=== PATIENT | male | born 2000 | race Caucasian/White ===

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

== ENCOUNTER 2019-01-08 17:11 | Emergency (ER) | payer MEDICAID ==
[~2019-01-08] VITALS: Ht 170.2 cm; Wt 68.0 kg
[2019-01-08] MEDS ORDERED: HYDROmorphone HCL 2 MG/ML VL ONE (17:18)
[2019-01-08] MEDS ORDERED: ONDANSETRON HCL 4 MG/2 ML VIAL ONE (17:18)
[2019-01-08] MEDS ORDERED: LIDOCAINE 1% HCL (LOCAL ANESTH.) INJ 20ML MDV ONE (17:22)
[2019-01-08] MEDS ORDERED: ceFAZolin 1GM VL ONE (17:22)
[2019-01-08] MEDS ORDERED: ONDANSETRON HCL 4 MG/2 ML VIAL IV ONE ×2 (17:30)
[2019-01-08] MEDS ORDERED: TETANUS-DIPTH-ACEL PERTUSSIS 0.5ML SYRG IM ONE (17:30)
[2019-01-08] MEDS ORDERED: LACTATED RINGER'S 1,000 ML IV ONE (17:30)
[2019-01-08] MEDS ORDERED: SODIUM CHLORIDE 0.9% 1,000 ML IV ONE (17:30)
[2019-01-08] MEDS ORDERED: HYDROmorphone HCL 2 MG/ML VL IV ONE ×3 (17:30)
[2019-01-08] MEDS ORDERED: LACTATED RINGER'S 2,000 ML IV ONE ×2 (17:30)
[2019-01-08] MEDS ORDERED: ceFAZolin IM 1GM/2.5ML STERILE WATER IM ONE (17:30)
[2019-01-08 18:38] VITALS: BP 145/89
== END 2019-01-08 19:04 | disposition short-term general hospital (02) ==
LOC: ER 17:11
DX: S61.412A Laceration without foreign body of left hand, initial encounter (principal); X58.XXXA Exposure to other specified factors, initial encounter; Y93.89 Activity, other specified; Y92.89 Other specified places as the place of occurrence of the external cause; Y99.8 Other external cause status
CPT/HCPCS: 12002; 90471; 90715; 96372; 96374; 96375; 99291; J0690; J1170; J2001; J2405

== ENCOUNTER 2019-07-03 21:05 | Emergency (ER) | payer MEDICAID ==
[~2019-07-03] VITALS: Ht 172.7 cm; Wt 72.6 kg
[2019-07-03 22:08] LABS: Urine Bacteria NONE SEEN /hpf (None Seen); Urine Blood Negative /uL (Negative); Urine Mucus FEW (None Seen); Urine WBC 2 /hpf (0 - 3)
[2019-07-03 23:57] VITALS: BP 129/70
[2019-07-04] MEDS ORDERED: PENICILLIN G BENZ 1200000 UNITS/2 ML SYRG IM ONE (00:45)
[2019-07-04] MEDS ORDERED: AZITHROMYCIN 250 MG TAB PO ONE (00:45)
[2019-07-04] MEDS ORDERED: cefTRIAXone SOD 1,000 MG VL IM ONE (00:45)
== END 2019-07-04 01:14 | disposition home or self-care (01) ==
LOC: ER 21:05
DX: Z20.2 Contact with and (suspected) exposure to infections with a predominantly sexual mode of transmission (principal); N48.89 Other specified disorders of penis; R30.0 Dysuria
CPT/HCPCS: 81001; 96372; 99284; J0561; J0696

== ENCOUNTER 2020-03-18 16:10 | Emergency (ER) | payer MEDICAID, OTHER ==
[~2020-03-18] VITALS: Ht 172.7 cm; Wt 79.4 kg
[2020-03-18] MEDS ORDERED: IPRATROPIUM BROM 0.5 MG/2.5ML INH SOL NEB ONE (16:45)
[2020-03-18] MEDS ORDERED: methylPREDNISolone SOD SUCC 125 MG/2 ML VL IM ONE (16:45)
[2020-03-18] MEDS ORDERED: ALBUTEROL SULF 2.5 MG/0.5ML(0.5%) NEB SOLN NEB ONE (16:45)
[2020-03-18 17:38] VITALS: BP 144/82
== END 2020-03-18 17:47 | disposition home or self-care (01) ==
LOC: ER 16:10
DX: J45.21 Mild intermittent asthma with (acute) exacerbation (principal)
CPT/HCPCS: 94640; 96372; 99283; J2930; J7644

== ENCOUNTER 2024-06-05 17:49 | Emergency (ER) | payer MEDICAID, OTHER ==
[~2024-06-05] VITALS: Ht 172.7 cm; Wt 75.7 kg
[2024-06-05 18:26] VITALS: BP 105/62; PULSE 90; RESP 16; TEMP 98.3; O2SAT 96
--- NOTE | 2024-06-05 18:41 | DVH ---
CLINICAL INDICATION: INJURY R/O FX TECHNIQUE: 3 radiographic views of the right hand were obtained. Comparison: None FINDINGS/IMPRESSION: Displaced transverse fracture through the middle to proximal 3rd of the 4th metacarpal of the right h and. The visualized joint space is well maintained. The alignment is anatomical. There is no radiopaque foreign body.
[2024-06-05] MEDS ORDERED: IBUP-1456 PO (19:22)
--- NOTE | 2024-06-05 19:23 | ED.PDOC ---
Musculoskeletal HPI Comments 23 year old male presents to ER with complaints of right hand pain x 1 day. Patient states that he tripped and fell and landed on his right hand onto cement last night and has since been experiencing pain/swelling to right hand. He reports 8/10 pain to right hand without radiation. Denies use of medications for current symptoms and notes he does have intermittent numbness/tingling to right hand. Denies right wrist pain or any further symptoms/complaints Chief Complaint: Upper Extremity Time Seen by MD: 18:08 Primary Care Provider: NONE Reviewed Notes: Nurses Notes, Medications, Allergies Allergies: Coded Allergies: NO KNOWN ALLERGIES (Unverified , 09/18/17) Home Meds Active Scripts Ibuprofen (Ibuprofen) 800 Mg Tab, 1 TAB PO TID PRN, #30 TAB 0 Refills Prov:TIFFANI KOVACS 06/05/24 Information Source: Patient Mode of Arrival: Ambulatory Past Medical History PAST MEDICAL HISTORY: Asthma, Depression Surgical History: Denies all surgeries Family History Family History: Unknown Social History Smoker: Non-Smoker Alcohol: Rarely Drugs: Marijuana Lives In: Home Constitutional: denies: chills, diaphoresis, fatigue, fever, malaise, sweats, weakness, others EENTM: denies: blurred vision, double vision, ear bleeding, ear discharge, ear drainage, ear pain, ear ringing, eye pain, eye redness, hearing loss, mouth pain, mouth swelling, nasal discharge, nose bleeding, nose congestion, nose pain, photophobia, tearing, throat pain, throat swelling, voice changes, others Respiratory: denies: cough, hemoptysis, orthopnea, SOB at rest, shortness of breath, SOB with excertion, stridor, wheezing, others Cardiovascular: denies: chest pain, dizzy spells, diaphoresis, Dyspnea on exertion, edema, irregular heart beat, left arm pain, lightheadedness, palpitations, PND, syncope, others Gastrointestinal: denies: abdomen distended, abdominal pain, blood streaked bowels, constipated, diarrhea, dysphagia, difficulty swallowing, hematemesis, melena, nausea, poor appetite, poor fluid intake, rectal bleeding, rectal pain, vomiting, others Genitourinary: denies: burning, dysuria, flank pain, frequency, hematuria, incontinence, penile discharge, penile sore, pain, testicle pain, testicle swelling, urgency, others Neurological: denies: dizziness, fainting, headache, left sided numbness, left sided weakness, numbness, paresthesia, pre-existing deficit, right sided numbness, right sided weakness, seizure, speech problems, tingling, tremors, weakness, others Musculoskeletal: reports: others (As stated in HPI) Integumetry: reports: others (As stated in HPI) Allergic/Immunocompromised: denies: Difficulty Healing, Frequent Infections, Hives, Itching, others Hematologic/Lymphatic: denies: anemia, blood clots, easy bleeding, easy bru ising, swollen glands, others Endocrine: denies: excessive hunger, excessive sweating, excessive thirst, e xcessive urination, flushing, intolerance to cold, intolerance to heat, unexplained weight gain, unexplained weight loss, others Psychiatric: denies: anxiety, bipolar disorder, depression, hopeless, panic disorder, schizophrenia, sleepless, suicidal, others Physical Exam General Appearance: No Apparent Distress HEENT: PERRL/EOMI Neck: Full Range of Motion, Non-Tender, Normal Respiratory: Chest Non-Tender, Lungs Clear, No Accessory Muscle Use, No Respiratory Distress, Normal Breath Sounds Cardiovascular: No Murmur, No Gallop, Regular Rate/Rhythm Breast Exam: Deferred Gastrointestinal: NOT DONE Genitalia: Deferred Pelvic: Deferred Rectal: Deferred Extremities: Normal capillary refill, Normal range of motion Musculoskeletal : Extremity Location: Hand (TTP/MODERATE SWELLING NOTED TO REGION OF RIGHT 4th METACARPAL. PATIENT ABLE TO FULLY MOVE ALL FINGERS OF RIGHT HAND. NO TTP TO RIGHT WRIST NOTED. PULSES INTACT) Neurologic: Alert, concierge manager II-XII nml as Tested, No Motor Deficits, Normal Affect, Normal Mood, No Sensory Deficits Cerebellar Function: Normal Reflexes: Normal Skin: Dry, Normal Color, Warm Peripheral Pulses: 2+ Radial (R), 2+ Radial (L), 2+ Brachial (R), 2+ Brachial (L) Lymphatic: No Adenopathy Was a procedure done? Was a procedure done?: No Sedation Sedation?: No Differential Diagnosis EXT Differential Diagnosis: Dislocation, Laceration, Neurovascular injury X-Ray, Labs, Meds, VS Vital Signs Date Time Temp Pulse Resp B/P (MAP) Pulse Ox O2 Delivery O2 Flow Rate FiO2 06/05/24 18:26 90 16 96 Room Air 06/05/24 18:26 98.3 90 16 105/62 (76) 96 98.3 06/05/24 18:05 98.3 90 16 105/62 (76) 96 98.3 PATIENT: SOHAIL DELGADOCCT: [id number] UNIT: [id number] : 2000 LOC: ER ROOM / BED: / AGE / SEX: 23 / M ADM STATUS: REG ER SERVICE 08 ORDERING PHYSICIAN: TIFFANI KOVACS PROCEDURE(s): RHAN - R HAND 3 VIEW XRAY REASON: INJURY R/O FX ORDER NUMBER(s): [id number], ACCESSION NUMBER(s): [id number] CLINICAL INDICATION: INJURY R/O FX TECHNIQUE: 3 radiographic views of the right hand were obtained. Comparison: None FINDINGS/IMPRESSION: Displaced transverse fracture through the middle to proximal 3rd of the 4th metacarpal of the right hand. The visualized joint space is well maintained. The alignment is anatomical. There is no radiopaque foreign body. ATED BY: JOSEPH QUILES Jr., DO DICTATED DATE/TIME: 06/05/241838 SIGNED BY: JOSEPH QUILES Jr., SIGNED DATE/TIME: 06/05/241838 CC: Right hand x-ray reviewed Patient neurovascularly intact Right boxers splint applied Advised on rest/on strenuous activity, elevation and alternate ice on/off as needed for pain/swelling Advised to f/u with PCP and orthopedic hand specialist in 1-2 days Patient verbalized understanding and agreeable with current plan of care Advised to return to ER immediately if symptoms worsen Images Reviewed?: Images reviewed and evaluated by me Time of 1ST Reevaluation: 19:04 Reevaluation 1ST: N/A Patient Education/Counseling: Diagnosis, Treatment, Prognosis, Need For Follow Up Family Education/Counseling: No Family Present Departure 1 Departure Time of Disposition: 19:20 Impression: Primary Impression: Metacarpal bone fracture Qualified Codes: S62.304A - Unspecified fracture of fourth metacarpal bone, right hand, initial encounter for closed fracture Disposition: HOME / SELF CARE / HOMELESS Condition: Stable e-Prescriptions Ibuprofen (Ibuprofen) 800 Mg Tab 1 TAB PO TID PRN, #30 TAB 0 Refills Prov: TIFFANI KOVACS 06/05/24 Discharged With: Self Critical Care Note Critical Care Time?: No Stability Stability form required: No Heart Score Heart Score: Heart Score Response (Comments) Value History N/A 0 EKG N/A 0 Age N/A 0 Risk Factors N/A 0 Troponin N/A 0 Total 0 TIFFANI KOVACS Jun 05, 2024 19:23
== END 2024-06-05 19:32 | disposition home or self-care (01) ==
LOC: ER 17:52
DX: S62.304A Unspecified fracture of fourth metacarpal bone, right hand, initial encounter for closed fracture (principal); J45.909 Unspecified asthma, uncomplicated; F32.A Depression, unspecified; F12.90 Cannabis use, unspecified, uncomplicated; Z79.899 Other long term (current) drug therapy; W01.0XXA Fall on same level from slipping, tripping and stumbling without subsequent striking against object, initial encounter; Y93.89 Activity, other specified; Y92.89 Other specified places as the place of occurrence of the external cause; Y99.8 Other external cause status
CPT/HCPCS: 29125; 73130